=== PATIENT | female | born 1985 | race Caucasian/White ===

== ENCOUNTER 2017-06-22 13:08 | Emergency (ER) | payer SELFPAY ==
[2017-06-22] MEDS ORDERED: Ketorolac 60 MG/2 ML SDV IM ONE (13:54)
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
--- NOTE | 2017-06-22 15:02 | CR ---
EXAMINATION: Two-view chest (PA and Lateral views). HISTORY: Shortness of breath. FINDINGS: The trachea is midline. The cardiomediastinal silhouette is within normal limits. No pulmonary infilt rates, effusions or pneumothorax. Osseous structures appear unremarkable. IMPRESSION: No acute cardiopulmonary process.
[2017-06-22] MEDS ORDERED: Ibuprofen 200 MG Tab PO ONE (15:05)
--- NOTE | 2017-06-22 15:13 | CT ---
EXAMINATION: Non contrast CT head. Coronal and sagittal reformats. HISTORY: Pain FINDINGS: No evidence of intra or extra axial hemorrhage, mass, midline shift, hydrocephalus or edema. No hypoattenuation changes in the major vascular territories to suggest acute infarct. No abnormal intracranial calcifications are detected. No evidence of substantial vascular calcificat ions. Paranasal sinuses and mastoid air cells are well aerated without substantial findings. Orbits and gl obes are symmetric. Pituitary fossa appears unremarkable. Calvarium is intact. No evidence of skull fracture. IMPRESSION: No acute intracranial findings.
[2017-06-22] MEDS ORDERED: Ibuprofen 600 MG Tab ONE (15:15)
--- NOTE | 2017-06-22 15:20 | CT ---
EXAMINATION: CT cervical spine HISTORY: Pain COMPARISON: None TECHNIQUE: Axial CT images obtained through the cervical spine without contrast. Coronal and sagittal reconstructions obtained. FINDINGS: The cervical spinal alignment is normal. The vertebral body heights and disc spaces appear well-maintained. No fracture or acute osseous abnormality. Bone mineralization is normal. Temporomand ibular joints are symmetric. The paravertebral soft tissues are normal. The lung apices are clear. IMPRESSION: 1. No acute cervical spinal abnormality.
== END 2017-06-22 15:47 | disposition home or self-care (01) ==
LOC: MW.ED 13:08
DX: S10.93XA Contusion of unspecified part of neck, initial encounter (principal); S40.012A Contusion of left shoulder, initial encounter; S40.011A Contusion of right shoulder, initial encounter; S50.12XA Contusion of left forearm, initial encounter; T74.11XA Adult physical abuse, confirmed, initial encounter; Y07.03 Male partner, perpetrator of maltreatment and neglect; Y04.2XXA Assault by strike against or bumped into by another person, initial encounter
CPT/HCPCS: 70450; 71046; 72125; 80305; 81025; 99284; A9270